=== PATIENT | female | born 1980 | race American Indian/Alaskan Native ===

== ENCOUNTER 2017-08-06 12:30 | Emergency (ER) | payer OTHER ==
[2017-08-06] MEDS ORDERED: Lidocaine 1% PF (5ml) Amp INJ ONE (12:58)
[2017-08-06] MEDS ORDERED: Bacitracin 500 Units/gm Oint Foilpak UD TOP ONE (13:00)
--- NOTE | 2017-08-06 13:00 | C.PDOC ---
History Of Present Illness 37 year old female patient presents to the ED for an evaluation of a laceration to her right 3rd finger. 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 Patient denies any numbness, or weakness. 2 sutures 4-0 nylon Time Seen by Provider: 08/06/17 12:40 Chief Complaint (Nursing): Abnormal Skin Integrity History Per: Patient History/Exam Limitations: no limitations Onset/Duration Of Symptoms: Mins Current Symptoms Are (Timing): Still Present Location Of Injury: Right: Hand (Right middle finger ) Past Medical History Reviewed: Historical Data, Nursing Documentation, Vital Signs Vital Signs: Last Vital Signs Temp 98 F 08/06/17 13:41 Pulse 81 08/06/17 13:41 Resp 20 08/06/17 13:41 BP 123/87 08/06/17 13:41 Pulse Ox 100 08/06/17 13:57 - Medical History PMH: HTN Surgical History: Tonsillectomy Family History: States: No Known Family Hx - Social History Hx Alcohol Use: No Hx Substance Use: No - Immunization History Hx Tetanus Toxoid Vaccination: No Hx Influenza Vaccination: No Hx Pneumococcal Vaccination: No Review Of Systems Except As Marked, All Systems Reviewed And Found Negative. Skin: Positive for: Other (Laceration to right middle finger ) Neurological: Negative for: Weakness, Numbness Physical Exam - Physical Exam Appears: Non-toxic Skin: Normal Color, Warm, Dry Head: Atraumatic, Normacephalic Eye(s): bilateral: Normal Inspection Neck: Supple Extremity: Normal ROM, Capillary Refill (<2 seconds), No Deformity, Other ( right 3rd digit 1.5cm curved laceration to volar fingertip with mild active bleeding) Pulses: Left Radial: Normal Neurological/Psych: Oriented x3, Normal Speech Gait: Steady ED Course And Treatment O2 Sat by Pulse Oximetry: 100 (RA) Pulse Ox Interpretation: Normal Laceration - Laceration Repair Right Middle Finger Wound Length (In cm): 1.5 Description Of Wound: Linear (Curved) Wound Cleansed With: Sterile Saline Anesthesia: Lidocaine 1% Wound Examination: Irrigated With Saline, No FB With Wound Exploration, No Tendon Injury With Wound Exploration Wound Closure: Suture Suture Technique And Material Used: Interrupted (2), Nylon (4-0) Wound Complexity: Simple Medical Decision Making Medical Decision Making: Impression: Finger laceration Plan: Laceration repair with lidocaine 1% Progress: Patient tolerated procedure well. Bacitracin and dressing applied. Patient instructed on wound care and when to return for suture removal . Patient was hypertensive, has history of HTN and did not take her medication yet today. Disposition Counseled Patient/Family Regarding: Diagnosis, Need For Followup - Disposition Disposition: HOME/ ROUTINE Disposition Time: 13:15 Condition: GOOD Additional Instructions: Keep area clean and dry. May wash gently with soap and water, do not use alcohol or iodine solution. Change dressing 1-2 times daily. Return to ER if fever occurs, redness or swelling around wound, pus in the wound. Please follow up with your primary doctor, clinic, or urgent care for suture removal in 8-10 days Instructions: Laceration Repair With Stitches (DC) Forms: [employer] (formerly [employer]) (Upper [place]) - POA Present On Arrival: None - Clinical Impression Clinical Impression: Laceration of finger - PA / FLARER / Resident Statement MD/DO has reviewed & agrees with the documentation as recorded. - Scribe Statement The provider has reviewed the documentation as recorded by the Denaeibkatelyn Aguayo All medical record entries made by the Justice were at my direction and personally dictated by me. I have reviewed the chart and agree that the record accurately reflects my personal performance of the history, physical exam, medical decision making, and the department course for this patient. I have also personally directed, reviewed, and agree with the discharge instructions and disposition.
[2017-08-06] MEDS ORDERED: Lidocaine Hydrochloride 5 ML INJ ONE (13:04)
[2017-08-06 13:06] VITALS: BMI 34.8
[2017-08-06] MEDS ORDERED: Tdap Vaccine 0.5 ml Vial (10-64 yrs) IM ONE (13:15)
[2017-08-06] MEDS ORDERED: Bacitracin 500 Units/gm Oint Foilpak UD ONE (13:33)
[2017-08-06 13:42] VITALS: BP 123/87; PULSE 81; RESP 20; TEMP 98
[2017-08-06 13:51] VITALS: O2SAT 100
== END 2017-08-06 13:41 | disposition home or self-care (01) ==
LOC: C.ER 12:30
DX: S61.212A Laceration without foreign body of right middle finger without damage to nail, initial encounter (principal); W25.XXXA Contact with sharp glass, initial encounter